=== PATIENT | female | born 1980 | race Caucasian/White ===

== ENCOUNTER → 2021-01-20 10:36 | Outpatient (CLI) | payer OTHER, MEDICAID, SELFPAY ==
--- NOTE | 2021-01-20 10:39 | DI.US.S_ITS ---
PROCEDURE: US OB >= 14 WEEKS FETUS INDICATIONS: 20 WEEK ANATOMICAL SURVEY OUTSIDE/PRIOR DATING DATA: Last menstrual period (LMP): 09/04/2020. LMP-based estimated date of delivery (LANDON): 06/11/2021 First dating scan (date and location): 01/20/2021 at [facility] Estimated date of delivery (LANDON) from first dating scan: 06/04/2021 TECHNIQUE: Real-time scanning was performed of the fetus, with image documentation and biometric measurements. Endovaginal scanning: Not indicated COMPARISON: None. FINDINGS: General: A single living intrauterine gestation is present. Presentation: Breech Placenta: Placental position is anterior, without previa. Amniotic fluid index: 10 cm, normal range is 5-24 cm. heart rate: 133 beats per minute. Maternal cervical canal: 3.9 cm long. Normal lower limit is 2.5 cm. biometrics: Biparietal diameter: 4.9 cm, 20 weeks, 5 days Head circumference: 18.6 cm, 20 weeks, 6 days Abdominal circumference: 15.1 cm, 20 weeks, 3 days Femur length: 3.4 cm, 20 weeks, 5 days Estimated gestational age from initial scan: not applicable. Composite gestational age from present scan: 20 weeks, 5 days Estimated weight and percentile: 361 grams, 88 percent. Measurement variability for biometric dating: +/- 7 days from 14 weeks to 15 weeks 6 days gestation, +/- 10 days from 16 weeks to 21 weeks 6 days gestation, +/- 2 weeks from 22 weeks to 27 weeks 6 days gestation, +/- 3 weeks for 28 weeks gestation or later. weight reference: 4500 g or EFW >90/95% is considered macrosomia or large for gestational age. EFW <10% is small for gestational age. EFW 5% or less is considered intra-uterine growth restriction. Anatomic survey: Neuro: Ventricles are non-dilated at less than 10 mm. Cisterna magna is normal at 3-11 mm. Cerebellum is normal in size and morphology. Nuchal skin fold: Normal at less than 6 mm between 14-21 weeks gestational age. Face: Nose and lips, facial profile are normal. Spine: No evidence for spina bifida. Heart: 4-chambered heart is present, with normal ventricular outflow tracts. Diaphragm: Diaphragm is intact. Stomach: Left-sided stomach is present. Kidneys: No hydronephrosis. Normal is less than 5 mm in 2nd trimester, less than 7 mm in 3rd trimester. Cord: 3-vessel cord has orthotopic insertion. Bladder: Normal in size. Extremities: All 4 extremities identified. IMPRESSION: 1. Single live intrauterine with fetus in breech presentation. heart rate is 133 beats per minute. Normal amount of amniotic fluid. Estimated weight is at 88th percentile. Estimated gestational age is 20 weeks, 5 days. 2. Normal anatomic survey. Dictated by: Devante Linares M.D. on 01/20/2021 at 12:50 Approved by: Devante Linares M.D. on 01/20/2021 at 13:05
== END ==
PROVIDERS: Referring Provider Nurse Practitioner Obstetrics & Gynecology; Visit Provider Nurse Practitioner Obstetrics & Gynecology
DX: Z36.89 Encounter for other specified antenatal screening (principal); Z3A.20 20 weeks gestation of pregnancy
CPT/HCPCS: 76811

== ENCOUNTER → 2021-02-26 09:04 | Outpatient (CLI) | payer OTHER, MEDICAID, SELFPAY ==
[2021-02-26 10:15] LABS: Hematocrit 33.8 % (36-46); Hemoglobin 11.8 g/dL (12.0-16.0); Mean Corpuscular HGB Conc 34.9 % (30-36); Mean Corpuscular Hemoglobin 30.7 PG (26-34); Mean Corpuscular Volume 87.9 fL (80-100); Platelet Count 206 X10^3/uL (150-400); Red Blood Cell Count 3.85 X10^6/uL (4.0-5.2); Red Cell Distribution Width 13.1 % (11.6-14.8); White Blood Cell Count 7.9 X10^3/uL (4.5-11.0)
[2021-02-26 10:56] LABS: Glucose Fasting 69 mg/dL (70-100)
[2021-02-26 11:28] LABS: Glucose 1 Hour 110 mg/dL (70-170)
[2021-02-26 11:34] LABS: Glucose Tol Interpretation INTERPRETATION
[2021-02-26 12:17] LABS: Glucose 2 Hour 93 mg/dL (70-140)
== END ==
PROVIDERS: Referring Provider Nurse Practitioner Obstetrics & Gynecology; Visit Provider Nurse Practitioner Obstetrics & Gynecology
DX: Z34.90 Encounter for supervision of normal pregnancy, unspecified, unspecified trimester (principal)
CPT/HCPCS: 36415; 82951; 82952; 85027